=== PATIENT | male | born 1965 | race American Indian/Alaskan Native ===

== ENCOUNTER 2018-01-05 03:50 | Inpatient (IN) | payer OTHER ==
[2018-01-05] MEDS ORDERED: ZOFRAN ODT PO ONE (04:21)
[2018-01-05 04:42] LABS: Basophils # (Auto) 0.1 K/mm3 (0.0-0.1); Eosinophils # (Auto) 0.1 K/mm3 (0.0-0.4); Eosinophils % (Auto) 0.6 % (0.0-4.3); Hematocrit 44.8 % (35.5-45.6); Hemoglobin 14.6 gm/dl (11.8-15.2); Lymphocytes # (Auto) 2.1 K/mm3 (1.2-5.4); Lymphocytes % (Auto) 23.4 % (13.4-35.0); Mean Corpuscular HGB Conc 33 % (32-34); Mean Corpuscular Hemoglobin 31 pg (28-32); Mean Corpuscular Volume 95 fl (84-94); Platelet Count 286 K/mm3 (140-440); Red Blood Count 4.71 M/mm3 (3.65-5.03); Red Cell Distribution Width 14.4 % (13.2-15.2)
[2018-01-05 05:04] LABS: Alanine Aminotransferase 11 units/L (7-56); Albumin 4.4 g/dL (3.9-5); BUN/Creatinine Ratio 13; Blood Urea Nitrogen 13 mg/dL (9-20); Calcium 9.7 mg/dL (8.4-10.2); Hemolysis Index 17
[2018-01-05 05:39] LABS: Bacteria,Urine 1+ /HPF (Negative); Bilirubin,Urine NEG (Negative); Blood,Urine NEG (Negative); Color,Urine Yellow (Yellow); Mucus,Urine 2+ /HPF
--- NOTE | 2018-01-05 05:45 | XRay Report ---
FINAL REPORT EXAM: XR ABDOMEN 2V HISTORY: abd pain TECHNIQUE: upright and supine views of the abdomen and pelvis PRIORS: None. FINDINGS: No pneumoperitoneum. Dilated loops of left abdominal small bowel with air-fluid levels on upright exam. Air and stool throughout the length of the colon. Marked serpentine curvature of the spine. IMPRESSION: Nonspecific bowel gas pattern as there is air throughout much of the colon but dilated and fluid-filled loops of small bowel. CT is recommended for further evaluation of possible obstruction. Notification initiated via [employer] patient support tech immediately following this dictation on 01/05/2018.
[2018-01-05] MEDS ORDERED: NACL 0.9% 1000 ML 1,000 ML IV ONE (05:55)
[2018-01-05] MEDS ORDERED: ZOFRAN IV ONE (05:56)
[2018-01-05] MEDS ORDERED: MORPHINE IV ONE (05:56)
[2018-01-05] MEDS ORDERED: REGLAN IV ONE (06:18)
--- NOTE | 2018-01-05 08:41 | Emergency Department Report ---
ED General Adult HPI - General Chief complaint: Abdominal Pain Stated complaint: ABD PAIN Time Seen by Provider: 01/05/18 06:00 Source: patient, family Mode of arrival: Ambulatory Limitations: No Limitations - History of Present Illness Initial comments: Patient is a 52-year-old male past medical history of stomach ulcers who presents with abdominal pain that started 2 hours ago. Patient states that pain is a 9 out of 10 and occurs throughout his body is an achy type of pain. Patient states that he had a bowel movement earlier on today. He has been nauseous and vomiting his vomit has been blood-tinged. Vomiting makes his pain worse nothing makes it better. The pain radiates throughout his belly. Patient denies having any surgeries before in the past. Severity scale (0 -10): 8 - Related Data Allergies Allergy/AdvReac Type Severity Reaction Status Date / Time No Known Allergies Allergy Unverified 01/05/18 04:15 ED Review of Systems ROS: Stated complaint: ABD PAIN Other details as noted in HPI Constitutional: denies: chills, fever Eyes: denies: eye pain, eye discharge, vision change ENT: denies: ear pain, throat pain Respiratory: denies: cough, shortness of breath, wheezing Cardiovascular: denies: chest pain, palpitations Endocrine: no symptoms reported Gastrointestinal: abdominal pain, nausea, vomiting. denies: diarrhea Genitourinary: denies: urgency, dysuria Musculoskeletal: denies: back pain, joint swelling, arthralgia Skin: denies: rash, lesions Neurological: denies: headache, weakness, paresthesias Psychiatric: denies: anxiety, depression Hematological/Lymphatic: denies: easy bleeding, easy bruising ED Past Medical Hx - Past Medical History Previous Medical History?: Yes Additional medical history: gastrointestinal ulcers - Surgical History Past Surgical History?: No - Social History Smoking Status: Current Every Day Smoker Substance Use Type: Alcohol ED Physical Exam - General Limitations: No Limitations General appearance: alert, in no apparent distress - Head Head exam: Present: atraumatic, normocephalic - Eye Eye exam: Present: normal appearance - ENT ENT exam: Present: mucous membranes moist - Neck Neck exam: Present: normal inspection - Respiratory Respiratory exam: Present: normal lung sounds bilaterally. Absent: respiratory distress - Cardiovascular Cardiovascular Exam: Present: regular rate, normal rhythm. Absent: systolic murmur, diastolic murmur, rubs, gallop - GI/Abdominal GI/Abdominal exam: Present: tenderness, diminished bowel sounds - Rectal Rectal exam: Present: deferred - Extremities Exam Extremities exam: Present: normal inspection - Back Exam Back exam: Present: normal inspection - Neurological Exam Neurological exam: Present: alert, oriented X3 - Psychiatric Psychiatric exam: Present: normal affect, normal mood - Skin Skin exam: Present: warm, dry, intact, normal color. Absent: rash ED Course Vital Signs 01/05/18 01/05/18 01/05/18 04:15 06:10 06:35 Temperature 98.3 F 98 F Pulse Rate 84 81 Respiratory 18 18 16 Rate Blood Pressure 129/90 Blood Pressure 126/71 [Left] O2 Sat by Pulse 95 99 Oximetry 01/05/18 08:16 Temperature Pulse Rate 88 Respiratory 16 Rate Blood Pressure Blood Pressure 120/72 [Left] O2 Sat by Pulse 98 Oximetry - Consultations Consultation #1: 01/05/18 10:[address] Noe she will admit patient to her service and will place an NG tube down and reevaluate patient morning. Discussed plan with the patient he agrees with the plan. ED Medical Decision Making - Lab Data Result diagrams: 01/05/18 04:30 01/05/18 04:30 Lab Results 01/05/18 01/05/18 01/05/18 Range/Units 04:30 04:30 Unknown WBC 9.0 (4.5-11.0) K/mm3 RBC 4.71 (3.65-5.03) M/mm3 Hgb 14.6 (11.8-15.2) gm/dl Hct 44.8 (35.5-45.6) % MCV 95 H (84-94) fl MCH 31 (28-32) pg MCHC 33 (32-34) % RDW 14.4 (13.2-15.2) % Plt Count 286 (140-440) K/mm3 Lymph % (Auto) 23.4 (13.4-35.0) % [place] % (Auto) 11.0 H (0.0-7.3) % Eos % (Auto) 0.6 (0.0-4.3) % Baso % (Auto) 1.0 (0.0-1.8) % Lymph # 2.1 (1.2-5.4) K/mm3 [place] # 1.0 H (0.0-0.8) K/mm3 Eos # 0.1 (0.0-0.4) K/mm3 Baso # 0.1 (0.0-0.1) K/mm3 Seg Neutrophils % 64.0 (40.0-70.0) % Seg Neutrophils # 5.8 (1.8-7.7) K/mm3 Sodium 143 (137-145) mmol/L Potassium 4.5 (3.6-5.0) mmol/L Chloride 98.9 (98-107) mmol/L Carbon Dioxide 31 H (22-30) mmol/L Anion Gap 18 mmol/L BUN 13 (9-20) mg/dL Creatinine 1.0 (0.8-1.5) mg/dL Estimated GFR > 60 ml/min BUN/Creatinine Ratio 13 % Glucose 98 (75-100) mg/dL Calcium 9.7 (8.4-10.2) mg/dL Total Bilirubin < 0.20 (0.1-1.2) mg/dL AST 26 (5-40) units/L ALT 11 (7-56) units/L Alkaline Phosphatase 108 (35-129) units/L Total Protein 8.6 H (6.3-8.2) g/dL Albumin 4.4 (3.9-5) g/dL Albumin/Globulin Ratio 1.0 % Urine Color Yellow (Yellow) Urine Turbidity Clear (Clear) Urine pH 6.0 (5.0-7.0) Ur Specific [place] 1.025 (1.003-1.030) Urine Protein 30 mg/dl (Negative) mg/dL Urine Glucose (UA) Neg (Negative) mg/dL Urine Ketones Neg (Negative) mg/dL Urine Blood Neg (Negative) Urine Nitrite Neg (Negative) Urine Bilirubin Neg (Negative) Urine Urobilinogen 2.0 (<2.0) mg/dL Ur Leukocyte Esterase Neg (Negative) Urine WBC (Auto) 4.0 (0.0-6.0) /HPF Urine RBC (Auto) 5.0 (0.0-6.0) /HPF Urine Bacteria (Auto) 1+ (Negative) /HPF Urine Mucus 2+ /HPF - Radiology Data Radiology results: report reviewed, image reviewed CT abd: shows small bowel obstruction - Medical Decision Making Cdx: Small bowel obstruction ddx: Gastritis, Pancreatitis, hollow viscous injury I will get CT scan of abdomen, IV pain medication, anti nausea medication, cbc, bmp, CT scan shows small bowel obstruction I will admit patient to the hospitalist service and I will consult Dr. Noe. Critical care attestation.: If time is entered above; I have spent that time in minutes in the direct care of this critically ill patient, excluding procedure time. ED Disposition Clinical Impression: Small bowel obstruction Abdominal pain Qualifiers: Abdominal location: generalized Qualified Code(s): R10.84 - Generalized abdominal pain Nausea and vomiting Qualifiers: Vomiting type: unspecified Vomiting Intractability: unspecified Qualified Code( s): R11.2 - Nausea with vomiting, unspecified Disposition: DC-09 OP ADMIT IP TO THIS HOSP Is pt being admited?: Yes Does the pt Need Aspirin: No Condition: Stable Referrals: CORETTA WANG MD [Primary Care Provider] - 3-5 Days
--- NOTE | 2018-01-05 08:47 | Cat Scan Report ---
CT ABDOMEN AND PELVIS WITH CONTRAST INDICATION: Abdominal pain, nausea, vomiting. Evaluate for bowel obstruction. COMPARISON: None similar. FINDINGS: Abdomen and pelvis CT performed following intravenous administration of 100 cc of Omnipaque 300. LUNG BASES: Slight nonspecific air filled distal esophageal prominence/thickening. ABDOMEN: Liver, spleen, gallbladder, pancreas, adrenals, nonaneurysmal abdominal aorta with extensive atherosclerotic aortoiliac calcifications, IVC and kidneys otherwise within normal limits. An indeterminate 5 mm left hepatic hypodensity anteriorly, axial image 25, series 2. No ascites or size significant adenopathy. Nonopacified GI tract evaluation limited, though proximal and distal small bowel appear decompressed. Few fluid filled mid small bowel loops however in the left hemiabdomen and pelvis dilated up to 3.1 cm caliber as on axial image 65, series 2. No pneumatosis or pneumoperitoneum. A normal appendix possibly visualized as on axial image 58. Colon decompressed with mild colonic stool, most along the transverse colon. Approximately 2.3 cm rectus diastasis at the umbilicus with a small fat containing right paraumbilical transverse defect of approximately 0.7 cm. PELVIS: Prominent/mildly enlarged prostate may be correlated for clinically and with PSA. Few tiny prostatic calcifications. Otherwise unremarkable urinary bladder and the rectosigmoid. No significant free fluid or adenopathy. Moderate thoracolumbar dextroscoliosis apex about T10-T11. Lower lumbar mild degenerative spurring. CONCLUSION: 1. Fluid-filled mid small bowel dilatation with proximal and distal small bowel appearing decompressed. Exact points of transition difficult to accurately recognize with closed-loop obstruction not entirely excluded in this setting and may be correlated for clinically as well. 2. Few other incidental findings, including moderate spinal dextroscoliosis. I phoned the above results to Dr. Mallory in the ER, 8:30 AM, 01/05/2018. Thank you for the opportunity to participate in this patient's care.
[2018-01-05] MEDS ORDERED: SUBLIMAZE IV ONE (09:12)
[2018-01-05] MEDS ORDERED: REGLAN ONE (09:15)
--- NOTE | 2018-01-05 10:00 | History and Physical Report ---
History of Present Illness Date of examination: 01/05/18 Chief complaint: abdominal pain History of present illness: Patient is a 52-year-old male past medical history of stomach ulcers who presents with abdominal pain that started 2 hours ago. Patient states that pain is a 9 out of 10 and occurs throughout his body is an achy type of pain. Patient states that he had a bowel movement earlier on today. He has been nauseous and vomiting his vomit has been blood-tinged. Vomiting makes his pain worse nothing makes it better. The pain radiates throughout his belly. Patient denies having any surgeries before in the past. Medications and Allergies Allergies Allergy/AdvReac Type Severity Reaction Status Date / Time No Known Allergies Allergy Unverified 01/05/18 04:15 Active Meds: Active Medications Sodium Chloride (Nacl 0.9% 1000 Ml) 1,000 mls @ 125 mls/hr IV ONCE ONE Stop: 01/05/18 13:54 Last Admin: 01/05/18 06:18 Dose: 125 mls/hr Exam - Constitutional Vitals: Temp Pulse Resp BP Pulse Ox 98 F 88 16 120/72 98 01/05/18 06:35 01/05/18 08:16 01/05/18 08:16 01/05/18 08:16 01/05/18 08:16 Results - Labs CBC & Chem 7: 01/05/18 04:30 01/05/18 04:30 Labs: Abnormal lab results 01/05/18 01/05/18 Range/Units 04:30 04:30 MCV 95 H (84-94) fl [place] % (Auto) 11.0 H (0.0-7.3) % [place] # 1.0 H (0.0-0.8) K/mm3 Carbon Dioxide 31 H (22-30) mmol/L Total Protein 8.6 H (6.3-8.2) g/dL
[2018-01-05] MEDS ORDERED: LIDOCAINE VISCOUS 2% PO ONE (10:01)
--- NOTE | 2018-01-05 10:03 | Consultation ---
History of Present Illness - Reason for Consult Consult date: 01/05/18 madical management - History of Present Illness Patient is a 52-year-old male past medical history of stomach ulcers who presents with abdominal pain that started since 1 am last night. Patient states that he was having nausea and abdominal discomfort for last one week but pain started since last night, rated 9 out of 10 and occurs throughout his abdomen without aggravating or releving factors. Patient states that he had a bowel movement earlier on yesterday. He has been nauseous and vomiting his vomit has been blood-tinged. Patient denies having any surgeries before in the past. In the ER CT abdomen pelvis obtain and shows small bowel obstruction. GS called and patient will be admitted under their service. Hospitalist service consulted for medical management. Past History Past Medical History: No medical history Past Surgical History: No surgical history Social history: smoking (cigar). denies: alcohol abuse, IV drug use Family history: cancer (pancreatic cancer in mother) Review of systems: Constitutional: denies: chills, fever Eyes: denies: eye pain, eye discharge, vision change ENT: denies: ear pain, throat pain Respiratory: denies: cough, shortness of breath, wheezing Cardiovascular: denies: chest pain, palpitations Endocrine: no symptoms reported Gastrointestinal: abdominal pain, nausea, vomiting. denies: diarrhea Genitourinary: denies: urgency, dysuria Musculoskeletal: denies: back pain, joint swelling, arthralgia Skin: denies: rash, lesions Neurological: denies: headache, weakness, paresthesias Psychiatric: denies: anxiety, depression Hematological/Lymphatic: denies: easy bleeding, easy bruising Medications and Allergies Allergies Allergy/AdvReac Type Severity Reaction Status Date / Time No Known Allergies Allergy Unverified 01/05/18 04:15 Home Medications Medication Instructions Recorded Confirmed Last Taken Type No Known Home Medications [No 01/05/18 01/05/18 Unknown History Reported Home Medications] Active Meds: Active Medications Sodium Chloride (Nacl 0.9% 1000 Ml) 1,000 mls @ 125 mls/hr IV ONCE ONE Stop: 01/05/18 13:54 Last Admin: 01/05/18 06:18 Dose: 125 mls/hr Exam - Physical Exam Narrative exam: - General General appearance: alert, in no apparent distress - Head Head exam: Present: atraumatic, normocephalic - Eye Eye exam: Present: normal appearance - ENT ENT exam: Present: mucous membranes moist - Neck Neck exam: Present: normal inspection - Respiratory Respiratory exam: Present: normal lung sounds bilaterally. Absent: respiratory distress - Cardiovascular Cardiovascular Exam: Present: regular rate, normal rhythm. Absent: systolic murmur, diastolic murmur, rubs, gallop - GI/Abdominal GI/Abdominal exam: Present: tenderness, diminished bowel sounds - Extremities Exam Extremities exam: Present: normal inspection - Neurological Exam Neurological exam: Present: alert, oriented X3 - Psychiatric Psychiatric exam: Present: normal affect, normal mood - Skin Skin exam: Present: warm, dry, intact, normal color. Absent: rash - Constitutional Vitals: Temp Pulse Resp BP Pulse Ox 98 F 88 16 120/72 98 01/05/18 06:35 01/05/18 08:16 01/05/18 08:16 01/05/18 08:16 01/05/18 08:16 Results - Labs CBC & Chem 7: 01/05/18 04:30 01/06/18 04:32 Labs: Abnormal lab results 01/05/18 01/05/18 Range/Units 04:30 04:30 MCV 95 H (84-94) fl [place] % (Auto) 11.0 H (0.0-7.3) % [place] # 1.0 H (0.0-0.8) K/mm3 Carbon Dioxide 31 H (22-30) mmol/L Total Protein 8.6 H (6.3-8.2) g/dL Assessment and Plan Small bowel obstruction Tobacco abuse - patient is admitted to surgical floor - getting intermittent NG suction, NPO now - cont Iv fluid, as needed medication for pain and nausea - DVT Px - counselling for tobacco abuse when clinically stable
[2018-01-05] MEDS ORDERED: MORPHINE IV PRN (10:25)
[2018-01-05] MEDS ORDERED: SODIUM CHLORIDE FLUSH SYRINGE 10 ML IV PRN (10:25)
--- NOTE | 2018-01-05 10:32 | History and Physical Report ---
History of Present Illness Date of examination: 01/05/18 Date of admission: 01/05/18 Chief complaint: abdominal pain History of present illness: 52-year-old male with no past medical history presented to the emergency room with complaints of 1 day of lower abdominal pain, sharp, radiating across his abdomen. The patient states that the pain started last night and was associated with non-bilious emesis, but did note some small droplets of blood in the emesis. Otherwise, it was the color of his food. He states that he ate at a restaurant for the first time last night and had steak, after which he started to have pain and nausea. He denies fevers or chills. He states he has never had pain like this in the past. He has been having flatus and bowel movements daily. His n/v are resolved and he feels hungry. He has never had a colonoscopy. Past History Past Medical History: No medical history Past Surgical History: No surgical history Social history: smoking (cigar). denies: alcohol abuse, IV drug use Family history: cancer (pancreatic cancer in mother) Medications and Allergies Allergies Allergy/AdvReac Type Severity Reaction Status Date / Time No Known Allergies Allergy Unverified 01/05/18 04:15 Active Meds: Active Medications Sodium Chloride (Nacl 0.9% 1000 Ml) 1,000 mls @ 125 mls/hr IV ONCE ONE Stop: 01/05/18 13:54 Last Admin: 01/05/18 06:18 Dose: 125 mls/hr Review of Systems All systems: negative (10 point review of systems was performed and negative except for that listed in HPI) Exam Vital Signs Temp Pulse Resp BP Pulse Ox 98.3 F 84 18 129/90 95 01/05/18 04:15 01/05/18 04:15 01/05/18 04:15 01/05/18 04:15 01/05/18 04:15 Narrative exam: General: Awake, alert, oriented 3. No apparent distress ENT: No scleral icterus or conjunctival pallor CV: S1, S2 present Respiratory: Clear to auscultation bilaterally, no wheezes, rales, rhonchi Abdomen: Soft, nondistended, tenderness to palpation in the right and left lower quadrant. No rebound, rigidity, guarding. Hypoactive bowel sounds Extremities: No clubbing, cyanosis, edema Results - Labs 01/05/18 04:30 01/05/18 04:30 Abnormal lab results 01/05/18 01/05/18 Range/Units 04:30 04:30 MCV 95 H (84-94) fl [place] % (Auto) 11.0 H (0.0-7.3) % [place] # 1.0 H (0.0-0.8) K/mm3 Carbon Dioxide 31 H (22-30) mmol/L Total Protein 8.6 H (6.3-8.2) g/dL Diabetes panel 01/05/18 Range/Units 04:30 Sodium 143 (137-145) mmol/L Potassium 4.5 (3.6-5.0) mmol/L Chloride 98.9 (98-107) mmol/L Carbon Dioxide 31 H (22-30) mmol/L BUN 13 (9-20) mg/dL Creatinine 1.0 (0.8-1.5) mg/dL Glucose 98 (75-100) mg/dL Calcium 9.7 (8.4-10.2) mg/dL AST 26 (5-40) units/L ALT 11 (7-56) units/L Alkaline Phosphatase 108 (35-129) units/L Total Protein 8.6 H (6.3-8.2) g/dL Albumin 4.4 (3.9-5) g/dL Calcium panel 01/05/18 Range/Units 04:30 Calcium 9.7 (8.4-10.2) mg/dL Albumin 4.4 (3.9-5) g/dL Pituitary panel 01/05/18 Range/Units 04:30 Sodium 143 (137-145) mmol/L Potassium 4.5 (3.6-5.0) mmol/L Chloride 98.9 (98-107) mmol/L Carbon Dioxide 31 H (22-30) mmol/L BUN 13 (9-20) mg/dL Creatinine 1.0 (0.8-1.5) mg/dL Glucose 98 (75-100) mg/dL Calcium 9.7 (8.4-10.2) mg/dL Adrenal panel 01/05/18 Range/Units 04:30 Sodium 143 (137-145) mmol/L Potassium 4.5 (3.6-5.0) mmol/L Chloride 98.9 (98-107) mmol/L Carbon Dioxide 31 H (22-30) mmol/L BUN 13 (9-20) mg/dL Creatinine 1.0 (0.8-1.5) mg/dL Glucose 98 (75-100) mg/dL Calcium 9.7 (8.4-10.2) mg/dL Total Bilirubin < 0.20 (0.1-1.2) mg/dL AST 26 (5-40) units/L ALT 11 (7-56) units/L Alkaline Phosphatase 108 (35-129) units/L Total Protein 8.6 H (6.3-8.2) g/dL Albumin 4.4 (3.9-5) g/dL - Imaging Abdominal x-ray: report reviewed, image reviewed CT scan - abdomen: report reviewed, image reviewed CT scan - pelvis: report reviewed, image reviewed Assessment and Plan 52 yo M with lower abd pain, n/v With the patient's hx, he likely has partial SBO vs gastroenteritis. He is having bowel function and has air and stool in his colon on imaging. His n/v are resolved and the patient is hungry. His WBC is normal and he does not have signs of dehydration or electrolyte abnormalities on labs. 1. Will place under observation to surgical floor 2. PRN nausea control 3. NGT to be placed in ER 4. IVF 5. pain control PRN 6. NPO 7. Repeat labs in am 8. serial abd exams
[2018-01-05] MEDS ORDERED: TYLENOL PO PRN (11:00)
[2018-01-05] MEDS ORDERED: VERSED IV NR (11:00)
[2018-01-05] MEDS ORDERED: MORPHINE ONE (11:08)
[2018-01-05] MEDS: MORPHINE IV PRN ×2 (11:15→20:16)
[2018-01-05] MEDS ORDERED: LIDOCAINE VISCOUS 2% ONE (11:48)
--- NOTE | 2018-01-05 13:01 | XRay Report ---
ABDOMEN RADIOGRAPH INDICATION: NG tube placement. COMPARISON: 5:30 AM earlier today. FINDINGS: Frontal abdominal radiograph, 2:33 PM, 01/05/2018 demonstrates a new esophagogastric tube tip about proximal to mid stomach. Iatrogenic contrast excretion now noted. Scoliosis and some extrinsic artifacts. CONCLUSION: Satisfactory interval esophagogastric tube placement and few other findings, as described. Thank you for the opportunity to participate in this patient's care.
[2018-01-05] MEDS: D5/0.45NS 1,000 ML IV SCH ×2 (14:09→20:43)
[2018-01-06] MEDS: MORPHINE IV PRN ×3 (04:02→19:17)
[2018-01-06] MEDS: ZOFRAN IV PRN ×3 (04:24→16:41)
[2018-01-06 05:20] LABS: BUN/Creatinine Ratio 8; Blood Urea Nitrogen 8 mg/dL (9-20); Calcium 8.6 mg/dL (8.4-10.2); Hemolysis Index 1
--- NOTE | 2018-01-06 09:10 | XRay Report ---
ABDOMINAL SERIES: History: Partial small bowel obstruction. Compared to 01/05/18. The nasogastric tube remains in the same position terminating in the fundus of the stomach. Mildly dilated mid small bowel loops have not significantly changed. There is normal stool and gas in the colon. No large free air or pathologic calcifications. Scoliosis is noted. Single view of the chest is unremarkable. IMPRESSION: No change in the mild small bowel dilatation since yesterday's exam.
[2018-01-06] MEDS ORDERED: KCL 10MEQ/100ML 10 MEQ/100 ML BAG IV SCH (10:00)
[2018-01-06] MEDS ORDERED: LOVENOX SUB-Q SCH (10:00)
[2018-01-06] MEDS: D5/0.45NS 1,000 ML IV SCH ×2 (10:10→19:15)
[2018-01-06] MEDS: LOVENOX SUB-Q SCH (10:10)
--- NOTE | 2018-01-06 11:00 | Progress Note ---
Assessment and Plan 52 yo M with pSBO 1. obs series reviewed - no change since yesterday 2. c/w NGT to LCWS 3. OOB/ambulate 4. IVF 5. replace electrolytes 6. prn Pain and nausea control 7. repeat obs series in am -> if no improvement will repeat CT A/P with oral contrast on Monday 8. I discussed the possibility of surgical intervention with the patient if he does not resolve and he understand. Subjective Date of service: 01/06/18 Narrative: Pt seen and examined. c/o intermittent abd pain and nausea. No flatus or BM. No f/c. No emesis. Objective Vital Signs - 12hr 01/06/18 01/06/18 01/06/18 00:01 04:02 04:21 Temperature 99.0 F 98.8 F Pulse Rate 76 83 Respiratory 20 20 20 Rate Blood Pressure 116/71 112/69 O2 Sat by Pulse 96 94 Oximetry 01/06/18 01/06/18 04:32 07:39 Temperature 99.3 F Pulse Rate 66 Respiratory 18 18 Rate Blood Pressure 135/84 O2 Sat by Pulse 100 Oximetry - General physical appearance Narrative Exam: Gen: AAOx3. NAD ENT: NGT with clear drainage CV: s1, S2+ Resp: No audible wheezes Abd: soft, nondistended, +TTP right lower abdomen, no r/r/g. Hypoactive bowel sounds Ext: No c/c/e NGT: 400cc/24h - clear - Labs 01/05/18 04:30 01/06/18 04:32 Diabetes panel 01/06/18 Range/Units 04:32 Sodium 141 (137-145) mmol/L Potassium 3.5 L D (3.6-5.0) mmol/L Chloride 99.3 (98-107) mmol/L Carbon Dioxide 29 (22-30) mmol/L BUN 8 L (9-20) mg/dL Creatinine 1.0 (0.8-1.5) mg/dL Glucose 129 H (75-100) mg/dL Calcium 8.6 (8.4-10.2) mg/dL Calcium panel 01/06/18 Range/Units 04:32 Calcium 8.6 (8.4-10.2) mg/dL Pituitary panel 01/06/18 Range/Units 04:32 Sodium 141 (137-145) mmol/L Potassium 3.5 L D (3.6-5.0) mmol/L Chloride 99.3 (98-107) mmol/L Carbon Dioxide 29 (22-30) mmol/L BUN 8 L (9-20) mg/dL Creatinine 1.0 (0.8-1.5) mg/dL Glucose 129 H (75-100) mg/dL Calcium 8.6 (8.4-10.2) mg/dL Adrenal panel 01/06/18 Range/Units 04:32 Sodium 141 (137-145) mmol/L Potassium 3.5 L D (3.6-5.0) mmol/L Chloride 99.3 (98-107) mmol/L Carbon Dioxide 29 (22-30) mmol/L BUN 8 L (9-20) mg/dL Creatinine 1.0 (0.8-1.5) mg/dL Glucose 129 H (75-100) mg/dL Calcium 8.6 (8.4-10.2) mg/dL
[2018-01-06] MEDS ORDERED: MILK OF MAGNESIA PO ONE (11:01)
--- NOTE | 2018-01-06 11:06 | Progress Note ---
Assessment and Plan Small bowel obstruction Tobacco abuse Hypokalemia - getting intermittent NG suction, NPO now - cont Iv fluid, as needed medication for pain and nausea - Replete electrolytes as needed - DVT Px, repeat obs series in am -> if no improvement will repeat CT A/P with oral contrast on Monday - counselling for tobacco abuse when clinically stable Brief history: Patient is a 52-year-old male past medical history of stomach ulcers who presents with abdominal pain, CT abdomen and pelvis in the ER showed small bowel obstruction. Hospitalist service consulted for medical management. Radiological test: CT abd: shows small bowel obstruction Hospitalist Physical exam: GENERAL: well-developed and well-nourished -[place] male lying on bed appeared to be in no discomfort. HEENT: Normocephalic. Atraumatic. No conjunctival congestion or icterus. Patient has moist mucous membranes. NG tube with suction in place NECK: Supple. Trachea midline. CHEST/LUNGS: Clear to auscultated bilaterally, breathing nonlabored. No wheezes crackles or rhonchi. HEART/CARDIOVASCULAR: Regular in rate and rhythm. S1 and S2 positive. ABDOMEN: Abdomen is soft, tenderness, diminished bowel sounds SKIN: There is no rash. Warm and dry. NEURO: No focal motor deficit. Follows command. MUSCULOSKELETAL: No joint effusion or tenderness. EXTRIMITY: No edema, no cyanosis or clubbing. PSYCH: Cooperative. Subjective Date of service: 01/06/18 Interval history: Patient seen and examined. Medical records and medication list reviewed. No acute event overnight noted by the RN. Patient denies any chest pain or difficulty breathing. Discussed plan of care at bedside with patient. No improvement of symptoms, still complaining of abdominal pain not passing any flatus or not having any bowel movement Objective - Constitutional Vitals: Vital Signs - 12hr 01/06/18 01/06/18 01/06/18 00:01 04:02 04:21 Temperature 99.0 F 98.8 F Pulse Rate 76 83 Respiratory 20 20 20 Rate Blood Pressure 116/71 112/69 O2 Sat by Pulse 96 94 Oximetry 01/06/18 01/06/18 04:32 07:39 Temperature 99.3 F Pulse Rate 66 Respiratory 18 18 Rate Blood Pressure 135/84 O2 Sat by Pulse 100 Oximetry - Labs CBC & Chem 7: 01/05/18 04:30 01/06/18 04:32 Labs: Abnormal lab results 01/06/18 Range/Units 04:32 Potassium 3.5 L D (3.6-5.0) mmol/L BUN 8 L (9-20) mg/dL Glucose 129 H (75-100) mg/dL
[2018-01-06] MEDS: KCL 10 MEQ in NACL 0.9% 100 ML IV SCH ×3 (16:00→18:18)
[2018-01-06] MEDS ORDERED: MILK OF MAGNESIA ONE (16:35)
[2018-01-06] MEDS: SODIUM CHLORIDE FLUSH SYRINGE 10 ML IV SCH (21:55)
[2018-01-07] MEDS: ZOFRAN IV PRN ×2 (00:19→18:49)
[2018-01-07] MEDS: MORPHINE IV PRN ×2 (01:34→18:52)
[2018-01-07] MEDS: D5/0.45NS 1,000 ML IV SCH ×3 (01:35→20:18)
[2018-01-07 07:59] LABS: BUN/Creatinine Ratio 6; Blood Urea Nitrogen 7 mg/dL (9-20); Calcium 8.7 mg/dL (8.4-10.2); Hemolysis Index 7
--- NOTE | 2018-01-07 09:05 | Progress Note ---
Assessment and Plan Small bowel obstruction Tobacco abuse Hypokalemia, repleted - getting intermittent NG suction, NPO now - cont Iv fluid, as needed medication for pain and nausea - Replete electrolytes as needed - DVT Px, plan to get a CT A/P with oral contrast today per - counselling for tobacco abuse when clinically stable Brief history: Patient is a 52-year-old male past medical history of stomach ulcers who presents with abdominal pain, CT abdomen and pelvis in the ER showed small bowel obstruction. Hospitalist service consulted for medical management. Radiological test: CT abd: shows small bowel obstruction Hospitalist Physical exam: GENERAL: well-developed and well-nourished -[place] male lying on bed appeared to be in no discomfort. HEENT: Normocephalic. Atraumatic. No conjunctival congestion or icterus. Patient has moist mucous membranes. NG tube with suction in place NECK: Supple. Trachea midline. CHEST/LUNGS: Clear to auscultated bilaterally, breathing nonlabored. No wheezes crackles or rhonchi. HEART/CARDIOVASCULAR: Regular in rate and rhythm. S1 and S2 positive. ABDOMEN: Abdomen is soft, mild tenderness, + bowel sounds SKIN: There is no rash. Warm and dry. NEURO: No focal motor deficit. Follows command. MUSCULOSKELETAL: No joint effusion or tenderness. EXTRIMITY: No edema, no cyanosis or clubbing. PSYCH: Cooperative. Subjective Date of service: 01/07/18 Interval history: Patient seen and examined. Medical records and medication list reviewed. No acute event overnight noted by the RN. Patient denies any chest pain or difficulty breathing. Discussed plan of care at bedside with patient. still complaining of abdominal pain, but passing flatus, no bowel movement yet Objective - Constitutional Vitals: Vital Signs - 12hr 01/06/18 01/06/18 01/07/18 22:00 23:58 01:34 Temperature 99.4 F Pulse Rate 74 Respiratory 20 18 18 Rate Respiratory 18 Rate [Lower Abdomen] Blood Pressure 134/81 O2 Sat by Pulse 100 Oximetry 01/07/18 01/07/18 04:27 07:15 Temperature 98.8 F 98.5 F Pulse Rate 89 79 Respiratory 18 20 Rate Respiratory Rate [Lower Abdomen] Blood Pressure 116/79 120/85 O2 Sat by Pulse 90 100 Oximetry - Labs CBC & Chem 7: 01/05/18 04:30 01/07/18 07:22 Labs: Abnormal lab results 01/07/18 Range/Units 07:22 Carbon Dioxide 31 H (22-30) mmol/L BUN 7 L (9-20) mg/dL Glucose 117 H (75-100) mg/dL
[2018-01-07] MEDS ORDERED: PROTONIX IV SCH (10:00)
--- NOTE | 2018-01-07 10:39 | Progress Note ---
Assessment and Plan 52 yo M with pSBO Plan: 1. dc obs series today, will obtain CT A/P with oral contrast in am to reassess bowel pattern. 2. c/w NGT to LCWS 3. OOB/ambulate 4. IVF 5. replace electrolytes as needed 6. prn Pain and nausea control 7. DVT ppx 8. I discussed the possibility of surgical intervention with the patient if he does not resolve and he understand. Subjective Date of service: 01/07/18 Narrative: Pt seen and examined. Had some crampy abd pain yesterday and nausea. This am, he denies pain, n/v. Afebrile. +Flatus but still no BM. Objective Vital Signs - 12hr 01/06/18 01/06/18 01/07/18 22:00 23:58 01:34 Temperature 99.4 F Pulse Rate 74 Respiratory 20 18 18 Rate Respiratory 18 Rate [Lower Abdomen] Blood Pressure 134/81 O2 Sat by Pulse 100 Oximetry 01/07/18 01/07/18 04:27 07:15 Temperature 98.8 F 98.5 F Pulse Rate 89 79 Respiratory 18 20 Rate Respiratory Rate [Lower Abdomen] Blood Pressure 116/79 120/85 O2 Sat by Pulse 90 100 Oximetry - General physical appearance Narrative Exam: Gen: AAOx3. NAD. Appear comfortable. NAD ENT: NGT in place - aspirate is clear, flushed with air and water CV: s1, S2+ resp: even and unlabored Abd: soft, distended, mild LLQ discomfort with palpation. No r/r/g. Bowel sounds present in all 4 quadrants Ext: no c/c/e - Labs 01/05/18 04:30 01/07/18 07:22 Diabetes panel 01/07/18 Range/Units 07:22 Sodium 138 (137-145) mmol/L Potassium 3.7 (3.6-5.0) mmol/L Chloride 98.0 (98-107) mmol/L Carbon Dioxide 31 H (22-30) mmol/L BUN 7 L (9-20) mg/dL Creatinine 1.1 (0.8-1.5) mg/dL Glucose 117 H (75-100) mg/dL Calcium 8.7 (8.4-10.2) mg/dL Calcium panel 01/07/18 Range/Units 07:22 Calcium 8.7 (8.4-10.2) mg/dL Pituitary panel 01/07/18 Range/Units 07:22 Sodium 138 (137-145) mmol/L Potassium 3.7 (3.6-5.0) mmol/L Chloride 98.0 (98-107) mmol/L Carbon Dioxide 31 H (22-30) mmol/L BUN 7 L (9-20) mg/dL Creatinine 1.1 (0.8-1.5) mg/dL Glucose 117 H (75-100) mg/dL Calcium 8.7 (8.4-10.2) mg/dL Adrenal panel 01/07/18 Range/Units 07:22 Sodium 138 (137-145) mmol/L Potassium 3.7 (3.6-5.0) mmol/L Chloride 98.0 (98-107) mmol/L Carbon Dioxide 31 H (22-30) mmol/L BUN 7 L (9-20) mg/dL Creatinine 1.1 (0.8-1.5) mg/dL Glucose 117 H (75-100) mg/dL Calcium 8.7 (8.4-10.2) mg/dL
[2018-01-07] MEDS: LOVENOX SUB-Q SCH (11:27)
[2018-01-07] MEDS: SODIUM CHLORIDE FLUSH SYRINGE 10 ML IV SCH (21:30)
[2018-01-08] MEDS: ZOFRAN IV PRN (00:15)
[2018-01-08] MEDS: MORPHINE IV PRN (01:37)
[2018-01-08 06:28] LABS: Hematocrit 38.9 % (35.5-45.6); Hemoglobin 13.2 gm/dl (11.8-15.2); Mean Corpuscular HGB Conc 34 % (32-34); Mean Corpuscular Hemoglobin 32 pg (28-32); Mean Corpuscular Volume 94 fl (84-94); Platelet Count 221 K/mm3 (140-440); Red Blood Count 4.14 M/mm3 (3.65-5.03); Red Cell Distribution Width 13.8 % (13.2-15.2)
[2018-01-08 06:42] LABS: BUN/Creatinine Ratio 5; Blood Urea Nitrogen 6 mg/dL (9-20); Hemolysis Index 2
--- NOTE | 2018-01-08 08:10 | Cat Scan Report ---
CT ABDOMEN PELVIS WITH CONTRAST: HISTORY: Partial small bowel obstruction, abdominal pain. COMPARISON: . TECHNIQUE: Helical CT in 1.25mm intervals following IV contrast. Sagittal and coronal reconstructions. FINDINGS: Lung bases: Normal. Liver: Normal. Biliary system: Vicarious excretion of contrast agent into the gallbladder is noted. No biliary dilatation has developed. Pancreas: Normal. Spleen: Normal. Kidneys/ureters/bladder: Normal. Adrenal glands: Normal. Aorta: Moderate partially calcified plaques are identified in the distal aorta and common iliac arteries. No stenosis or aneurysm. Intestines: Mildly dilated and fluid-filled loops of small bowel throughout the mid abdomen have not significantly changed since the exam 3 days ago. Distal small bowel loops and colon remain decompressed/normal caliber. There is suggestion of a transition point in the right lower quadrant best appreciated on images 184-200, series 2. This may represent an adhesion. No obvious GI mass or focal inflammation. Appendix: Not confidently identified, correlate with surgical history. Ascites: Small pelvic and perihepatic ascites has developed which is new. Adenopathy: None. Musculoskeletal: Severe scoliosis. Mild degenerative changes. No fracture or suspicious bony lesion. IMPRESSION: No significant change is demonstrated in the partial small bowel obstruction pattern. There may be a transition point in the right lower quadrant as outlined above. Small pelvic and perihepatic ascites has developed since 01/05/18.
--- NOTE | 2018-01-08 12:42 | Progress Note ---
Assessment and Plan 52 yo M with pSBO Plan: 1. repeat CT A/P reviewed - persistent SBO without improvement, new pelvic ascites, no clear transition point 2. c/w NPO, IVF, NGT 3. DVT and GI ppx 4. I discussed performing a diagnostic laparoscopy, possible exploratory laparotomy with the patient today. His imaging is not showing improvement, he remains distended and tender despite NGT decompression and bowel rest. The patient understands that he may not improve without surgical intervention. All risks, benefits, and alternatives of surgery discussed. The patient would like to discuss surgery with his family and is not ready to make a decision. He wants to wait one more day and make a decision in the am tomorrow. Subjective Date of service: 01/08/18 Narrative: Pt seen and examined. Feels well. had 2 BMs and is having flatus. No n/v. C/o abdominal bloating. Objective Vital Signs - 12hr 01/08/18 01/08/18 01/08/18 05:40 07:07 07:08 Temperature 99.0 F 99.3 F Pulse Rate 66 70 68 Respiratory 18 16 Rate Blood Pressure 135/83 125/78 Blood Pressure [Left] O2 Sat by Pulse 100 93 94 Oximetry 01/08/18 11:35 Temperature 98.9 F Pulse Rate 68 Respiratory 20 Rate Blood Pressure Blood Pressure 128/77 [Left] O2 Sat by Pulse 95 Oximetry - General physical appearance Narrative Exam: Gen: AAOx3. NAD ENT: NGT with clear drainage and sediment CV: s1, S2+ Resp: even and unlabored Abd: soft, distended, tympanic, +TTP near umbilicus, no r/r/g Ext: no c/c/e NGT - 200 cc/24hrs - Labs 01/08/18 05:02 01/08/18 05:02 Diabetes panel 01/08/18 Range/Units 05:02 Sodium 138 (137-145) mmol/L Potassium 3.6 (3.6-5.0) mmol/L Chloride 97.3 L (98-107) mmol/L Carbon Dioxide 31 H (22-30) mmol/L BUN 6 L (9-20) mg/dL Creatinine 1.1 (0.8-1.5) mg/dL Glucose 103 H (75-100) mg/dL Calcium 9.0 (8.4-10.2) mg/dL Calcium panel 01/08/18 Range/Units 05:02 Calcium 9.0 (8.4-10.2) mg/dL Phosphorus 3.10 (2.5-4.5) mg/dL Pituitary panel 01/08/18 Range/Units 05:02 Sodium 138 (137-145) mmol/L Potassium 3.6 (3.6-5.0) mmol/L Chloride 97.3 L (98-107) mmol/L Carbon Dioxide 31 H (22-30) mmol/L BUN 6 L (9-20) mg/dL Creatinine 1.1 (0.8-1.5) mg/dL Glucose 103 H (75-100) mg/dL Calcium 9.0 (8.4-10.2) mg/dL Adrenal panel 01/08/18 Range/Units 05:02 Sodium 138 (137-145) mmol/L Potassium 3.6 (3.6-5.0) mmol/L Chloride 97.3 L (98-107) mmol/L Carbon Dioxide 31 H (22-30) mmol/L BUN 6 L (9-20) mg/dL Creatinine 1.1 (0.8-1.5) mg/dL Glucose 103 H (75-100) mg/dL Calcium 9.0 (8.4-10.2) mg/dL - Imaging CT scan - abdomen: report reviewed, image reviewed CT scan - pelvis: report reviewed, image reviewed
[2018-01-08 16:38] VITALS: BP 139/93
--- NOTE | 2018-01-08 16:40 | Progress Note ---
Assessment and Plan Small bowel obstruction Tobacco abuse Hypokalemia, repleted - getting intermittent NG suction, NPO now - cont Iv fluid, as needed medication for pain and nausea - Replete electrolytes as needed - DVT Px, repeat CT A/P reviewed - persistent SBO without improvement, new pelvic ascites - patient most likley will need surgical intervention, pt is deciding and wants to wait one more day - counselling for tobacco abuse when clinically stable Brief history: Patient is a 52-year-old male past medical history of stomach ulcers who presents with abdominal pain, CT abdomen and pelvis in the ER showed small bowel obstruction. Hospitalist service consulted for medical management. Radiological test: CT abd 01/05 and 01/08: shows small bowel obstruction Hospitalist Physical exam: GENERAL: well-developed and well-nourished -[place] male lying on bed appeared to be in no discomfort. HEENT: Normocephalic. Atraumatic. No conjunctival congestion or icterus. Patient has moist mucous membranes. NG tube with suction in place NECK: Supple. Trachea midline. CHEST/LUNGS: Clear to auscultated bilaterally, breathing nonlabored. No wheezes crackles or rhonchi. HEART/CARDIOVASCULAR: Regular in rate and rhythm. S1 and S2 positive. ABDOMEN: Abdomen is soft, mild tenderness, + bowel sounds SKIN: There is no rash. Warm and dry. NEURO: No focal motor deficit. Follows command. MUSCULOSKELETAL: No joint effusion or tenderness. EXTRIMITY: No edema, no cyanosis or clubbing. PSYCH: Cooperative. Subjective Date of service: 01/08/18 Interval history: Patient seen and examined. Medical records and medication list reviewed. No acute event overnight noted by the RN. Patient denies any chest pain or difficulty breathing. Discussed plan of care at bedside with patient. still complaining of abdominal pain, no bowel movement yet Objective - Constitutional Vitals: Vital Signs - 12hr 01/08/18 01/08/18 01/08/18 05:40 07:07 07:08 Temperature 99.0 F 99.3 F Pulse Rate 66 70 68 Respiratory 18 16 Rate Blood Pressure 135/83 125/78 Blood Pressure [Left] O2 Sat by Pulse 100 93 94 Oximetry 01/08/18 01/08/18 01/08/18 11:35 14:06 16:06 Temperature 98.9 F 98.3 F Pulse Rate 68 116 H 82 Respiratory 20 20 Rate Blood Pressure Blood Pressure 128/77 139/93 [Left] O2 Sat by Pulse 95 97 95 Oximetry - Labs CBC & Chem 7: 01/08/18 05:02 01/08/18 05:02 Labs: Abnormal lab results 01/08/18 Range/Units 05:02 Chloride 97.3 L (98-107) mmol/L Carbon Dioxide 31 H (22-30) mmol/L BUN 6 L (9-20) mg/dL Glucose 103 H (75-100) mg/dL
--- NOTE | 2018-01-09 09:18 | Event Note ---
Date: 01/09/18 Notified by nursing yesterday 01/08/18 at 4666 that patient was signing out AMA.
== END 2018-01-08 17:55 | disposition left against medical advice (07) | DRG 390 ==
LOC: ED 03:50 → 3B-SURG 10:25 → OBSVTOIN 01-08 11:48
PROVIDERS: ADMIT Surgery; ATTEND Surgery
PROC: 0D9670Z Drainage of Stomach with Drainage Device, Via Natural or Artificial Opening (ICD-10-PCS; principal; 2018-01-05)
DX: K56.600 Partial intestinal obstruction, unspecified as to cause (principal); Z80.0 Family history of malignant neoplasm of digestive organs; F17.290 Nicotine dependence, other tobacco product, uncomplicated; E87.6 Hypokalemia; Z71.6 Tobacco abuse counseling
CPT/HCPCS: 36415; 74018; 74019; 74022; 74177; 80048; 80053; 81001; 83735; 84100; 85025; 85027; 96374; 96375; 99406; C9113; G0378; J1650; J2250; J2270; J2405; J2765; J3010; J3480; J7030; Q9967